=== PATIENT | female | born 1970 | race Caucasian/White ===

== ENCOUNTER 2019-06-02 06:05 | Inpatient (IN) ==
[2019-06-02] MEDS ORDERED: NS 1,000 ML IV ONE (06:56)
[2019-06-02] MEDS ORDERED: TORADOL IV ONE (06:56)
[2019-06-02] MEDS ORDERED: ZOFRAN IV ONE (06:56)
--- NOTE | 2019-06-02 07:23 | PROVIDER DOCUMENTATION ---
HPI-General Adult - General Chief Complaint: Abdominal Pain Stated Complaint: FLANK PAIN / SHOULDER Time Seen by Provider: 06/02/19 06:53 Source: patient Allergies/Adverse Reactions: Patient Allergies Allergy/AdvReac Type Severity Reaction Status Date / Time No Known Allergies Allergy Verified 05/24/15 12:46 Home Medications: Home Medication List Medication Instructions Recorded Confirmed Last Taken Type No Home Medications 05/24/15 06/02/19 Unknown History - History of Present Illness -Gen Adult Nature of Presenting Problems: 48yo female is s/p February total radical hysterectomy w/ BSO PER dR joy. Reports1 1/2 months of intermittent eisodes of sweats,nause,chills.[id number] 2 weeks of persistent high right upper abd and flank pain. Repots n/v and not retaining fluids x 2 days. Denies other health problems. passing gas. no dysuria. Review of Systems - Adult - REVIEW OF SYSTEMS - ADULT Constitutional: reports: see HPI, chills, fatique Eyes: reports: no symptoms reported Ears, Nose, Mouth & Throat: reports: no symptoms reported Cardiovascular: reports: no symptoms reported Respiratory: reports: see HPI, pleurisy, shortness of breath Gastrointestinal: reports: see HPI, abdominal pain Genitourinary: reports: no symptoms reported. denies: dysuria, discharge, frequency Musculoskeletal: reports: no symptoms reported Integumentary: reports: no symptoms reported Neurological: reports: no symptoms reported Psychiatric: reports: no symptoms reported Endocrine: reports: no symptoms reported Hematologic/Lymphatic: reports: no symptoms reported Allergic/Immunologic: reports: no symptoms reported All Other Systems: Reviewed and Negative Past History - Adult - PAST MEDICAL HISTORY-ADULT Review of Records: reports: Nursing Assessment Review, Medications Reviewed, Social history reviewed & non-contributory. Major Childhood Illnesses: reports: denies history Cardiovascular: reports: denies history Respiratory: reports: denies history Gastrointestinal: reports: denies history Obstetrical/Gynecological: reports: denies history Genitourinary: reports: denies history Musculoskeletal: reports: denies history Neurological: reports: denies history Endocrine/Immune: reports: denies history Other Conditions: reports: denies history - PRIOR SURGERIES/PROCEDURES Surgical/Procedure History: reports: other (multiple skin cancers removed from the face) - IMMUNIZATION STATUS Childhood Immunizations: NUTD Flu Vaccine: NUTD Physical Exam-General - PHYSICAL EXAM-ADULT Initial Vital Signs Reviewed: Yes - CONSTITUTIONAL General Appearance: alert, mild distress - EYES Eyes: PERRL/EOMI - HEAD, EARS, NOSE, MOUTH & THROAT HENMT: normocephalic/atraumatic, moist mucous membranes, pharynx normal - NECK Neck: full range of motion, supple - RESPIRATORY Respiratory: lungs clear, normal breath sounds, no respiratory distress, no accessory muscle use - CARDIOVASCULAR Cardiovascular: normal peripheral pulses, regular rate, rhythm, no edema, no JVD , no murmur - GASTROINTESTINAL (ABDOMEN) Abdominal Exam: normal bowel sounds, soft, tenderness (mild tender RUQ and r flank) - MUSCULOSKELETAL Back Exam: CVA tenderness (right, mild) Extremity: normal range of motion, non-tender, normal gait, normal inspection, no pedal edema, no calf tenderness - SKIN Integumentary: normal color, normal turgor - NEUROLOGIC Neurologic: regulator inspector II-XII nml as tested, grossly normal, no motor/sensory deficits - PSYCHIATRIC Psych/Mental Status: normal mood/affect, normal thought content, normal thought process, oriented x 3 Progress - PLAN OF CARE/RESULTS Progress/Plan/Lab Results: Vital Signs - 8 hr 06/02/19 06:09 Temperature 98.6 F Pulse Rate 91 H Respiratory Rate 20 Blood Pressure 147/89 O2 Sat by Pulse Oximetry 97 Orders Category Date Time Status Cardiac Monitoring DIRECTED Care 06/02/19 06:57 Active Saline Loc NOW Care 06/02/19 06:[address] ABD/PELVIS W/IV CONT ONLY [CT] Stat Exams 06/02/19 06:58 Ordered BLOOD CULTURE [BLDCUL] Stat Lab 06/02/19 06:58 Ordered CBC WITH ELECTRONIC DIFF [HEME] Stat Lab 06/02/19 06:50 Results COMPREHENSIVE METABOLIC PANEL [CHEM] Stat Lab 06/02/19 06:33 Received LACTATE, PLASMA [CHEM] Stat Lab 06/02/19 07:06 Ordered MAGNESIUM [CHEM] Stat Lab 06/02/19 06:50 Received PROTIME WITH INR [COAG] Stat Lab 06/02/19 06:50 Received PTT [COAG] Stat Lab 06/02/19 06:50 Received TROPONIN T Stat Lab 06/02/19 06:[address] W/POSS RFLX CULT [URINALYSIS] Stat Lab 06/02/19 07:08 Ordered 0.9% Sodium Chloride Inj [Ns] 1,000 ml Med 06/02/19 06:56 Active IV 999 mls/hr Ketorolac [Toradol] Med 06/02/19 06:56 Discontinued 15 mg IV NOW ONE Ondansetron [Zofran] Med 06/02/19 06:56 Discontinued 4 mg IV NOW ONE EKG [EKG] Stat Ther 06/02/19 06:58 Ordered Result Diagrams: 06/02/19 06:50 06/02/19 06:33 - REASSESSMENT Reassessment #1 Time Reassessed: 07:28 Status: improving (Seen and examined by me. Case discussed with Dr. Fenton at shift change. Right flank pain intermittent for several days, sometimes radiates to right shoulder. Associated with N/V and no diarrhea. States urine this morning was dark and "funky colored." Dr. Fenton had ordered IVF, toradol and zofran and patient states pain is "about a 2 now.") - CT/MRI 1 CT Study: Abdomen Impression: Abnormal, See EMR Report ( FINDINGS: There is a small right pleural effusion. There is a 2.6 x 2.3 cm pleural-based nodular opacity with central fluid or necrosis at the posterior lateral inferior right lower lobe lung. There are no substantial abnormalities of the liver, spleen, adrenal glands, or pancreas identified. There is nonspecific mild thickening of gallbladder rene. There are no calcified gallstones or pericholecystic inflammation identified. The bilateral kidneys enhance homogeneously except for an apparent 1 cm cyst at the medial mid to upper left kidney. There is no hydronephrosis. There are no substantial enlarged lymph nodes identified. There is no evidence of bowel obstruction. The appendix by history is surgically absent. There is no substantial bowel wall thickening identified. There is no free air, free fluid, or abscess identified. There has been prior hysterectomy. There is no abnormal pelvic mass or fluid collection identified. IMPRESSION: Small right pleural effusion. 2.6 x 2.3 cm pleural-based nodular opacity with central fluid or necrosis at posterior lateral inferior right lower lobe lung. This could be inflammatory or malignant. Nonspecific mild thickening of gallbladder rene. No calcified gallstones. No pericholecystic inflammation. Small left renal cyst. No hydronephrosis. This exam was performed using automated exposure control, adjustment of mA or kV according to patient size, and/or use of iterative reconstruction technique. Electronically signed by Bharat Pedroza 06/02/2019 8:19 AM 06/02/19818 Interpreting Physician: Bharat Pedroza MD Dictated Date/Time: 06/02/1910 cc: Cachorro Fenton MD; None,PCP) - CONSULTS/PCP/HOSPITALIST Notification #1 *Consult/PCP/Hospitalist*: Tillman paged at [id number] Time Discussed: 08:59 Consult Disposition: Will see in ED - CHANGE OF SHIFT REPORT (ED Provider) 1 Report Given and Care Transferred to:: dr hernandez Time of Transfer: 07:26 Items Pending: Labs, CT/MRI Results Departure - Departure Date of Disposition Decision: 06/02/19 Time of Disposition Decision: 08:59 DIAGNOSIS: Acute right flank pain, Pulmonary cavitary lesion, Pleural effusion on right, Pyelonephritis, Trichomonal vaginitis, Candidiasis of female genitalia Disposition: ADMITTED INPATIENT 09 Certified Medical Emergency: Emergent Condition: Stable Referrals and Follow-Ups: None,PCP [Primary Care Provider] - - Critical Care Note This patient required my direct & personal management of CC.: No Attestation - Physician/ SUELLEN Attestation Patient care was provided by Advanced Practice Provider:: No The physician spent face to face time with patient:: Yes Advanced Practice Provider documentation review:: Supervising physician onsite and consulted in the evaluation and care of this patient. The physician did have a face to face encounter with the patient.
[2019-06-02 07:24] LABS: AGAP 14; ALBUMIN 4.1 g/dL (3.5-5.0); ALKALINE PHOSPHATASE 94 U/L (32-104); BUN 5 mg/dL (8-22); CALCIUM 10.1 mg/dL (8.8-10.2); CHLORIDE 95 mmol/L (98-107); COSMO 267; CREATININE 0.6 mg/dL (0.5-0.9); ESTIMATED GFR > 60; GLUCOSE 126 mg/dL (70-104); GOT 29 U/L (10-30); GPT 19 U/L (10-36); POTASSIUM 3.7 mmol/L (3.5-5.1); SODIUM 134 mmol/L (136-145); TCO2 26 mmol/L (25-35); TOTAL PROTEIN 7.5 g/dL (6.3-8.3)
[2019-06-02 07:24] LABS: BASO# 0.06 X1000 (0.0-0.2); BASO% 0.5 % (0.0-0.8); EOS# 0.27 X1000 (0.0-0.7); EOS% 2.2 % (0.0-10.0); HEMATOCRIT 47.3 % (37.0-47.0); HEMOGLOBIN 15.7 g/dL (12.0-16.0); IMM GRAN# 0.12 X1000 (0.0-0.04); INR 0.93; LYMPH# 1.81 X1000 (1.2-3.4); LYMPH% 14.5 % (20.5-51.1); MCH 33.3 PG (27-31); MCHC 33.2 g/dL (33-37); MCV 100.4 FL (81-99); MONO% 13.6 % (1.7-9.3); NEUT# 8.55 X1000 (1.4-6.5); NEUT% 68.2 % (42.2-75.2); PLT 637 X1000 (130-400); PROTIME 12.9 Seconds (11.0-16.0); RBC 4.71 XMIL (4.2-5.4); RDW 12.4 % (11.5-14.5); WBC 12.51 X1000 (4.8-10.8)
[2019-06-02 07:25] LABS: PTT 29.4 Seconds (22.3-41.8)
[2019-06-02 07:31] LABS: COLOR AMBER; URINE BACTERIA 3+ /HFP; URINE CAST NONE SEEN /LPF; URINE CRYSTAL NONE SEEN /HPF; URINE EPITHELIAL CELLS <10 /HPF (<10); URINE RBC <10 /HPF (<10); URINE SOURCE CLEAN CATCH; URINE TRICHOMONAS PRESENT; URINE WBC 20-40 /HPF (<10); URINE YEAST PRESENT /HPF
[2019-06-02 07:32] LABS: BILIRUBIN URINE 1+ (NEGATIVE); BLOOD URINE TRACE (NEGATIVE); CLARITY VERY CLOUDY (CLEAR); GLUCOSE URINE NEGATIVE (NEGATIVE); KETONE URINE 2+(Moderate) mg/dL (NEGATIVE); LEUKOCYTES URINE 2+ (NEGATIVE); NITRITE URINE POSITIVE (NEGATIVE); PH URINE 6.5; PROTEIN URINE 1+(30 mg/dL) mg/dL (NEGATIVE); UROBILINOGEN URINE 4 mg/dL
--- NOTE | 2019-06-02 08:21 | Diag Imaging Result Doc PS360 ---
EXAM: CT ABD/PELVIS W/IV CONT ONLY - 06/02/2019 HISTORY: ruq/flank pain and tender TECHNIQUE: CT abdomen/pelvis with intravenous contrast. No oral contrast administered per request of the referring provider. COMPARISON: None. FINDINGS: There is a small right pleural effusion. There is a 2.6 x 2.3 cm pleural-based nodular opacity with central fluid or necrosis at the posterior lateral inferior right lower lobe lung. There are no substantial abnormalities of the liver, spleen, adrenal glands, or pancreas identified. There is nonspecific mild thickening of gallbladder rene. There are no calcified gallstones or pericholecystic inflammation identified. The bilateral kidneys enhance homogeneously except for an apparent 1 cm cyst at the medial mid to upper left kidney. There is no hydronephrosis. There are no substantial enlarged lymph nodes identified. There is no evidence of bowel obstruction. The appendix by history is surgically absent. There is no substantial bowel wall thickening identified. There is no free air, free fluid, or abscess identified. There has been prior hysterectomy. There is no abnormal pelvic mass or fluid collection identified. IMPRESSION: Small right pleural effusion. 2.6 x 2.3 cm pleural-based nodular opacity with central fluid or necrosis at posterior lateral inferior right lower lobe lung. This could be inflammatory or malignant. Nonspecific mild thickening of gallbladder rene. No calcified gallstones. No pericholecystic inflammation. Small left renal cyst. No hydronephrosis. This exam was performed using automated exposure control, adjustment of mA or kV according to patient size, and/or use of iterative reconstruction technique. Electronically signed by Bharat Pedroza 06/02/2019 8:19 AM
[2019-06-02] MEDS ORDERED: FLAGYL PO ONE (08:45)
[2019-06-02] MEDS ORDERED: DIFLUCAN PO ONE (08:45)
[2019-06-02] MEDS ORDERED: ROCEPHIN 1 GM in NS 50 ML IV ONE (08:45)
[2019-06-02] MEDS ORDERED: FLAGYL ONE (08:48)
[2019-06-02] MEDS ORDERED: TYLENOL PO PRN (09:01)
--- NOTE | 2019-06-02 09:09 | ED EKG INTERP ---
This chart was entered by Sandy Reid Scribe, acting as scribe for Damian Soto MD. EKG Interpretation - EKG Time of EKG reading by physician:: 08:18 EKG Read and Signed by:: Damian Soto EKG Interpretation (*Must complete 3 of following elements*): Abnormal Rate: 80 Rhythm: accelerated junctional rhythm [place]: normal QRS: normal [place] Interval: normal ST Wave: normal Comments: artifact present/nonspecific ST and T wave abnormality Attestation - Physician/ SUELLEN Attestation Patient care was provided by Advanced Practice Provider:: No The physician spent face to face time with patient:: Yes Advanced Practice Provider documentation review:: Supervising physician onsite and consulted in the evaluation and care of this patient. The physician did have a face to face encounter with the patient. This chart was documented by the indicated scribe, (Sandy Reid Scribe) and accurately reflects the services I performed and decisions made by mt, Damian Monsalve MD, as attested by the provider's signature.
[2019-06-02] MEDS ORDERED: NS 1,000 ML IV SCH (09:15)
--- NOTE | 2019-06-02 09:25 | Diag Imaging Result Doc PS360 ---
CHEST-2 VIEWS - 06/02/2019 INDICATION: RLL cavitation COMPARISON: CT abdomen pelvis from earlier today FINDINGS: There is a trace right pleural effusion. There is a faint nodular opacity in the lateral right lower lobe. There are no other abnormalities. Lungs are otherwise clear. Heart size is normal. IMPRESSION: No additional findings. Electronically signed by Jaden Mccrary 06/02/2019 9:23 AM
--- NOTE | 2019-06-02 09:31 | EKG Report ---
Test Performed on : 06/02/2019 08:10:53 AM Test Reason : abd pain Blood Pressure : / mmHG Vent. Rate : 080 BPM Atrial Rate : 080 BPM P-R Int : 000 ms QRS Dur : 092 ms QT Int : 420 ms P-R-T Axes : 000 068 062 degrees QTc Int : 484 ms Accelerated Junctional rhythm. Nonspecific ST and T wave abnormality Abnormal ECG No previous ECGs available Unconfirmed Result
[2019-06-02] MEDS: NORCO-10 PO PRN (14:55)
--- NOTE | 2019-06-02 18:58 | HISTORY AND PHYSICAL ---
CHIEF COMPLAINT: Abdominal pain. HISTORY OF PRESENT ILLNESS: The patient is a 48-year-old female who has a known history of cervical cancer, status post a radical hysterectomy in February. For the last month or so she has had nausea. No real vomiting. She has had occasional episodes of sweating and chills. Denies any dysuria, urinary frequency, urgency or hesitancy. Denies hematuria. Notes she has had right upper quadrant and right flank pain off and on. ALLERGIES: No known drug allergies. MEDICATIONS: No current prescription medications. REVIEW OF SYSTEMS: As noted above. Denies fevers, chills, cough, congestion. Denies any shortness of breath, chest pains or palpitations. Denies diarrhea, dysuria or frequency. Denies constipation, melena or hematochezia. Denies weight loss or weight gain. Denies skin rashes. PAST SURGICAL HISTORY: She has had multiple skin cancers removed from her face. SOCIAL HISTORY: Noncontributory. PHYSICAL EXAMINATION: VITAL SIGNS: Reviewed. Temperature 98 degrees, pulse 91, respiratory rate 20, BP 147/89, saturation 97% on room air. GENERAL: The patient is awake, currently in no distress. ABDOMEN: Soft. EXTREMITIES: Moves all extremities. NEUROLOGIC: No changes. ASSESSMENT: 1. Hypertension. 2. Right flank pain, concern for pyelonephritis. 3. Mild leukocytosis. 4. Hyperglycemia. 5. Thrombocytosis. 6. Pulmonary nodule on the right, 2.6 x 2.3, pleural-based with questionable necrosis. 7. History of cervical cancer. PLAN: We are going to admit the patient to the hospital. Pain control, fluids antibiotics. Check urine and blood culture. Concern as to what this pleural-based nodular opacity is, especially given her history of multiple skin cancers as well as recent diagnosis and surgical intervention for cervical cancer. I certainly feel as though her symptoms are due to pyelonephritis more than this incidentally found pulmonary nodule. We will continue to follow. Place her on antibiotics, fluids, and further orders as needed. cc: Walter Morse MD
[2019-06-02] MEDS: ZOFRAN IV PRN (19:54)
[2019-06-03] MEDS ORDERED: VANCOMYCIN IV PER PHARMACY MISC SCH (05:00)
[2019-06-03] MEDS: NORCO-10 PO PRN (05:23)
[2019-06-03] MEDS: ZOFRAN IV PRN ×3 (05:23→22:14)
[2019-06-03] MEDS ORDERED: VANCOMYCIN 1 GM/NS 1 GM/250 ML IVPB IV ONE ×2 (05:30→06:30)
[2019-06-03 05:56] LABS: HEMATOCRIT 45.6 % (37.0-47.0); HEMOGLOBIN 15.6 g/dL (12.0-16.0); MCHC 34.2 g/dL (33-37); MCV 99.3 FL (81-99); MPV 9.7 FL (7.4-10.4); RBC 4.59 XMIL (4.2-5.4); RDW 12.4 % (11.5-14.5); WBC 14.4 X1000 (4.8-10.8)
[2019-06-03 06:19] LABS: AGAP 17; ALBUMIN 3.6 g/dL (3.5-5.0); ALKALINE PHOSPHATASE 85 U/L (32-104); BUN 4 mg/dL (8-22); CALCIUM 9.7 mg/dL (8.8-10.2); CHLORIDE 104 mmol/L (98-107); COSMO 276; CREATININE 0.5 mg/dL (0.5-0.9); ESTIMATED GFR > 60; GLUCOSE 94 mg/dL (70-104); GOT 29 U/L (10-30); GPT 16 U/L (10-36); MAGNESIUM 1.7 mg/dL (1.5-2.7); POTASSIUM 3.6 mmol/L (3.5-5.1); SODIUM 140 mmol/L (136-145); TCO2 20 mmol/L (25-35); TOTAL PROTEIN 7.2 g/dL (6.3-8.3)
--- NOTE | 2019-06-03 07:20 | EKG Report ---
Test Performed on : 06/03/2019 05:35:54 AM Test Reason : CP Blood Pressure : / mmHG Vent. Rate : 075 BPM Atrial Rate : 075 BPM P-R Int : 138 ms QRS Dur : 088 ms QT Int : 390 ms P-R-T Axes : 084 088 081 degrees QTc Int : 435 ms Normal sinus rhythm. Nonspecific ST and T wave abnormality Abnormal ECG When compared with ECG of 02-JUN-2019 08:10, (Unconfirmed) Sinus rhythm. has replaced Junctional rhythm. Confirmed by Aneudy Ospina MD ([id number]) on 06/07/2019 9:10:29 PM
[2019-06-03] MEDS: MORPHINE IV PRN ×2 (11:44→22:13)
[2019-06-03] MEDS: NS 1,000 ML IV SCH (11:45)
--- NOTE | 2019-06-03 13:47 | PROGRESS NOTE ---
DATE: 06/03/2019 SUBJECTIVE: Patient notes she still has some low-grade fevers. Still had right-sided flank and chest pain. She is still very concerned that this nodule inside her lung is what is causing her pain and all of her symptoms. OBJECTIVE: Vital Signs: On physical exam, temperature is 99, pulse 84, respiratory rate 18, BP 116/74. General: Patient is in no respiratory distress, sitting in the bed. HEENT: Normocephalic. Neck: Supple. Cardiovascular: Regular rate. No murmurs. Chest: Clear, nonlabored. Abdomen: Soft. Nondistended, nontender. Extremities: Moves all extremities. Neurologic: No changes. ASSESSMENT: 1. Pyelonephritis. 2. Right pleural-based nodular density of 2.6 x 2.3 cm. 3. Leukocytosis. 4. Hyperglycemia. PLAN: We will continue patient in the hospital. Continue to follow. Further orders as needed. We will continue to keep her on antibiotics until cultures return. cc: Walter Morse MD
[2019-06-03] MEDS: VANCOMYCIN 1,400 MG in NS 250 ML IV SCH (20:25)
[2019-06-04] MEDS: MORPHINE IV PRN ×4 (05:27→23:23)
[2019-06-04] MEDS: NS 1,000 ML IV SCH ×2 (05:27→14:08)
[2019-06-04 06:15] LABS: HEMATOCRIT 45.4 % (37.0-47.0); MCH 33.3 PG (27-31); MCV 100.9 FL (81-99); MPV 9.6 FL (7.4-10.4); RBC 4.5 XMIL (4.2-5.4); RDW 12.3 % (11.5-14.5); WBC 15.66 X1000 (4.8-10.8)
[2019-06-04 06:32] LABS: AGAP 16; ALBUMIN 3.6 g/dL (3.5-5.0); ALKALINE PHOSPHATASE 70 U/L (32-104); BUN 1 mg/dL (8-22); CALCIUM 9.1 mg/dL (8.8-10.2); CHLORIDE 100 mmol/L (98-107); COSMO 274; CREATININE 0.5 mg/dL (0.5-0.9); ESTIMATED GFR > 60; GLUCOSE 104 mg/dL (70-104); GOT 16 U/L (10-30); GPT 11 U/L (10-36); MAGNESIUM 1.5 mg/dL (1.5-2.7); POTASSIUM 3.3 mmol/L (3.5-5.1); SODIUM 139 mmol/L (136-145); TCO2 24 mmol/L (25-35); TOTAL PROTEIN 6.8 g/dL (6.3-8.3)
--- NOTE | 2019-06-04 07:17 | Diag Imaging Result Doc PS360 ---
CHEST-2 VIEWS - 06/04/2019 INDICATION: hypoxia COMPARISON: 06/02/2019 FINDINGS: There are new dense focal infiltrates in the right middle and lower lobes. The left lung remains clear. Heart size is normal. No pneumothorax or significant pleural effusion. IMPRESSION: Multilobar pneumonia in the left base. Electronically signed by Jaden Mccrary 06/04/2019 7:14 AM
[2019-06-04] MEDS: ZOSYN 3.375 GM in NS 50 ML IV SCH ×3 (08:00→18:30)
[2019-06-04] MEDS ORDERED: KLOR-CON PO ONE (09:15)
--- NOTE | 2019-06-04 09:43 | PROGRESS NOTE ---
DATE: 06/04/2019 SUBJECTIVE: The patient complains of having significant pain in the right flank and right lower chest area. OBJECTIVE: Vital Signs: Temperature 99.6 degrees, pulse 81 per minute, respiratory rate 18 per minute, blood pressure 122/86, pulse oximetry 94% on room air. General: Patient is alert and oriented x3. She is in [id number] distress secondary to pain in her right flank and right lower chest area. Cardiovascular System: First and second heart sounds are audible without any murmurs or gallops. Respiratory System: No respiratory distress noted. Right lower lung entry slightly decreased, but there are no rales or rhonchi present on auscultation. Gastrointestinal: Abdomen is soft and nondistended. Right flank area is tender on examination. Musculoskeletal System: No deformities are present. DIAGNOSTIC DATA: CBC shows WBC count of 15.66 with platelet count of 653,000. Hemoglobin and hematocrit are within normal limits. Comprehensive metabolic panel showed potassium levels of 3.3. Rest of the comprehensive metabolic panel is nondiagnostic. Urinalysis showed 20 to 40 white blood cells per high-power field and CT scan of the abdomen and pelvis obtained on 06/02/2019 showed small right pleural effusion with 2.6 in to 2.3 cm pleural based nodular opacity with central fluid or necrosis at posterior lateral inferior right lower lung. She was also noted to have nonspecific mild thickening of the gallbladder rene. Small left renal cyst was noted, but there was no hydronephrosis. IMPRESSION: 1. 48-year-old female with urinary tract infection and right lung nodule with worsening pneumonia in right lower lung with the possibility of having malignancy. 2. Leukocytosis secondary to pneumonia. 3. Hypokalemia. PLAN: 1. I am going to obtain CT scan of the chest with contrast for further evaluation. 2. Meanwhile, we are going to continue her on IV Apresoline along with vancomycin and give her IV fluids. 3. Further recommendations will be given as per CT scan results. cc: Jono Pleitez MD
[2019-06-04] MEDS: VANCOMYCIN 1,400 MG in NS 250 ML IV SCH ×2 (10:25→20:11)
[2019-06-04] MEDS: ZOFRAN IV PRN (15:09)
[2019-06-04] MEDS: NORCO-10 PO PRN (15:10)
[2019-06-05] MEDS: ZOSYN 3.375 GM in NS 50 ML IV SCH ×4 (02:11→20:46)
[2019-06-05] MEDS: MORPHINE IV PRN ×4 (03:49→22:24)
[2019-06-05] MEDS: NS 1,000 ML IV SCH ×2 (06:17→17:49)
[2019-06-05 06:22] LABS: BE 1.2 mmoll (-3.0-3.0); BLOOD TYPE ARTERIAL; HCO3-(ACT) 25.5 mmoll (20.0-26.0); METHB 1.2 % (0.0-1.5); O2(CT) 17.7 mL/dL (15.0-23.0); PCO2(98.6) 37 mmHg (35-45); PO2(98.6) 50 mmHg (60-100); SAMPLE BLOOD; SAO2 89.4 % (95.0-100.0); THB 14.7 g/dL (11.5-17.4); pH(98.6) 7.44 (7.35-7.45)
[2019-06-05 06:25] LABS: ALLEN TEST NO; MODALITY ROOM AIR; O2HB 85.8 % (95.0-99.0)
[2019-06-05 06:29] LABS: BASO# 0.04 X1000 (0.0-0.2); BASO% 0.3 % (0.0-0.8); EOS# 0.27 X1000 (0.0-0.7); EOS% 1.8 % (0.0-10.0); HEMATOCRIT 44.3 % (37.0-47.0); HEMOGLOBIN 14.3 g/dL (12.0-16.0); IMM GRAN# 0.08 X1000 (0.0-0.04); IMM GRAN% 0.5 % (0.0-0.5); LYMPH# 1.67 X1000 (1.2-3.4); LYMPH% 11.1 % (20.5-51.1); MCH 32.7 PG (27-31); MCHC 32.3 g/dL (33-37); MCV 101.4 FL (81-99); MONO# 2.11 X1000 (0.11-0.59); NEUT# 10.88 X1000 (1.4-6.5); NEUT% 72.3 % (42.2-75.2); PLT 582 X1000 (130-400); RBC 4.37 XMIL (4.2-5.4); RDW 12.3 % (11.5-14.5); WBC 15.05 X1000 (4.8-10.8)
[2019-06-05 07:13] LABS: AGAP 16; ALKALINE PHOSPHATASE 61 U/L (32-104); BUN 2 mg/dL (8-22); CALCIUM 8.8 mg/dL (8.8-10.2); CHLORIDE 101 mmol/L (98-107); COSMO 274; CREATININE 0.4 mg/dL (0.5-0.9); ESTIMATED GFR > 60; GLUCOSE 78 mg/dL (70-104); GOT 12 U/L (10-30); GPT 8 U/L (10-36); POTASSIUM 3.4 mmol/L (3.5-5.1); SODIUM 140 mmol/L (136-145); TCO2 23 mmol/L (25-35); TOTAL PROTEIN 6.2 g/dL (6.3-8.3)
--- NOTE | 2019-06-05 08:03 | Diag Imaging Result Doc PS360 ---
EXAM: CT THORAX W/CONTRAST HISTORY: Worsening pneumonia TECHNIQUE: CT chest with intravenous contrast COMPARISON: None. FINDINGS: There is a moderate sized right-sided pleural effusion measuring 5.3 cm posteriorly and inferiorly in the midline. No significant left pleural fluid. The heart is mildly enlarged. No aortic aneurysm or dissection. There are small mediastinal nodes. There are right lower lobe and middle lobe infiltrates as well as atelectasis. Findings are more prominent in the lower lobe. A small amount of atelectasis is present in the left lower lobe. IMPRESSION: Cardiomegaly with a moderate-sized right pleural effusion with basilar atelectasis and infiltrates. This exam was performed using automated exposure control, adjustment of mA or kV according to patient size, and/or use of iterative reconstruction technique. Electronically signed by Adebayo Lawrence 06/05/2019 8:01 AM
[2019-06-05] MEDS: VANCOMYCIN 1,700 MG in NS 250 ML IV SCH ×2 (09:11→21:50)
[2019-06-05] MEDS: NORCO-10 PO PRN ×2 (09:11→19:30)
[2019-06-05] MEDS: ZOFRAN IV PRN ×2 (12:28→19:30)
[2019-06-05] MEDS: KENALOG 0.1% CREAM TOP SCH (20:46)
[2019-06-05] MEDS ORDERED: SOLU-MEDROL IV ONE (21:22)
--- NOTE | 2019-06-05 21:39 | PROGRESS NOTE ---
DATE: 06/05/2019 SUBJECTIVE: Patient notes that overall she states that she is feeling better. Her cough has improved. Her shortness of breath has improved. OBJECTIVE: Vital signs: Temperature 98.6, pulse 81, respiratory rate 18, BP 129/67. General: Patient is awake, alert. She is sitting up in the bed, pleasant to talk with. She is in no current respiratory distress. HEENT: Normocephalic. Neck: Supple. Cardiovascular: Regular rate. Chest: Decreased breath sounds, but equal. No current crackles. Abdomen: Soft, nondistended. Extremities: Moves all extremities. ASSESSMENT: 1. Right pleural effusion. 2. Right pleural nodule of undetermined origin. The patient does have a history of cervical cancer with a recent diagnosis and treatment. 3. Leukocytosis, mildly improved. 4. Right lower lobe pneumonia. PLAN: We will continue patient in the hospital. Continue antibiotics. If her effusion does not improve, she may require thoracentesis. Certainly needs to follow closely with pulmonology regarding her pulmonary nodule. cc: Walter Morse MD
[2019-06-06] MEDS: ZOSYN 3.375 GM in NS 50 ML IV SCH ×4 (02:00→20:30)
[2019-06-06] MEDS: ZOFRAN IV PRN ×2 (04:43→17:26)
[2019-06-06] MEDS: MORPHINE IV PRN ×2 (04:43→22:31)
[2019-06-06] MEDS: NS 1,000 ML IV SCH (06:09)
[2019-06-06] MEDS: KENALOG 0.1% CREAM TOP SCH ×3 (07:57→22:37)
[2019-06-06] MEDS: VANCOMYCIN 1,700 MG in NS 250 ML IV SCH (08:37)
[2019-06-06] MEDS: NORCO-10 PO PRN ×2 (10:16→17:26)
[2019-06-06] MEDS: ZYVOX 600 MG/D5W 600 MG/300 ML IVPB IV SCH (18:18)
[2019-06-06] MEDS ORDERED: LASIX IV ONE (18:23)
[2019-06-06] MEDS: KLONOPIN PO PRN (18:35)
--- NOTE | 2019-06-06 18:51 | PROGRESS NOTE ---
DATE: 06/06/2019 SUBJECTIVE: She is still having right-sided pleuritic chest pain. OBJECTIVE: Blood pressure is 132/67, heart rate 63, respiratory rate 18, temperature 98 degrees, 93% on 2 L.Cardiovascular: Regular rate and rhythm. Pulmonary: Bilateral breath sounds. Clear to auscultation. GI: Was soft, nontender, nondistended. Bowel sounds are positive. Her right side has no diminished breath sounds. PROBLEM LIST: 1. Vastly accumulating. I think she will need a thoracentesis or possibly a thoracostomy. I consulted Dr. Carbajal who, after reviewing the study, thinks she needs a thoracostomy, so we are going to transfer across town to evaluate for that. I do not know why she has this pleural effusion that is accumulating. It is possible she has heart failure, although she does not really have any other symptoms of heart failure, but it has been getting worse, so we are going to stop her IV fluids and initiate some Lasix and we will see how she does. I am going to get a pulmonary opinion as well when she gets over there. 2. Possible pneumonia. We are on Zosyn and vancomycin and have not improved a ton and we will get antibiotics and follow. DISPOSITION: 1. Pending her clinical status, but I anticipate transferring her for a pulmonary evaluation and surgical evaluation for a thoracostomy. 2. She is very anxious. I am going to put her on a little bit of low-dose Klonopin and see how she does with that. She does have a smoking history, although fairly remote. She does have a history of cervical cancer, but apparently it has been all controlled. cc: Yaya Krishnan MD
[2019-06-07] MEDS: ZOSYN 3.375 GM in NS 50 ML IV SCH ×4 (02:58→22:31)
[2019-06-07 05:59] LABS: BASO# 0.02 X1000 (0.0-0.2); BASO% 0.1 % (0.0-0.8); EOS# 0.07 X1000 (0.0-0.7); EOS% 0.5 % (0.0-10.0); HEMATOCRIT 40.8 % (37.0-47.0); HEMOGLOBIN 13.5 g/dL (12.0-16.0); IMM GRAN# 0.09 X1000 (0.0-0.04); IMM GRAN% 0.6 % (0.0-0.5); LYMPH# 2.04 X1000 (1.2-3.4); MCH 32.7 PG (27-31); MCHC 33.1 g/dL (33-37); MCV 98.8 FL (81-99); MONO# 1.65 X1000 (0.11-0.59); MONO% 11.3 % (1.7-9.3); MPV 9.6 FL (7.4-10.4); NEUT# 10.68 X1000 (1.4-6.5); NEUT% 73.5 % (42.2-75.2); PLT 804 X1000 (130-400); RBC 4.13 XMIL (4.2-5.4); RDW 12.3 % (11.5-14.5); WBC 14.55 X1000 (4.8-10.8)
[2019-06-07] MEDS: ZYVOX 600 MG/D5W 600 MG/300 ML IVPB IV SCH ×2 (06:13→21:50)
[2019-06-07] MEDS: MORPHINE IV PRN ×4 (06:13→22:02)
[2019-06-07] MEDS: ZOFRAN IV PRN (06:14)
[2019-06-07 06:15] LABS: AGAP 12; BUN 3 mg/dL (8-22); CALCIUM 9.3 mg/dL (8.8-10.2); CHLORIDE 102 mmol/L (98-107); COSMO 279; CREATININE 0.7 mg/dL (0.5-0.9); ESTIMATED GFR > 60; GLUCOSE 91 mg/dL (70-104); POTASSIUM 2.7 mmol/L (3.5-5.1); SODIUM 142 mmol/L (136-145); TCO2 28 mmol/L (25-35)
[2019-06-07 07:54] LABS: BANDS 1 % (0-1); LYMPHS 13 % (21-51); MONO 5 % (1-9); SEGS 80 % (42-75)
[2019-06-07 07:56] LABS: MICROCYTOSIS OCCASIONAL; VACUOLES 1+
[2019-06-07] MEDS: KENALOG 0.1% CREAM TOP SCH ×2 (08:46→20:47)
[2019-06-07] MEDS: NORCO-10 PO PRN (10:04)
[2019-06-07] MEDS ORDERED: KLOR-CON PO ONE (11:00)
[2019-06-07] MEDS ORDERED: POTASSIUM CHLORIDE 20 MEQ/SWI 20 MEQ/100 ML IVPB IV SCH ×2 (12:00→14:00)
[2019-06-07] MEDS: KLONOPIN PO PRN ×3 (12:48→20:51)
[2019-06-07] MEDS ORDERED: TYLENOL PO PRN (13:35)
--- NOTE | 2019-06-07 14:11 | PROGRESS NOTE ---
DATE: 06/07/2019 SUBJECTIVE: The patient has no major complaints. She looks a little less harried than she did yesterday. Still having pleuritic chest pain, still having shortness of breath. OBJECTIVE: Blood pressure 113/67, heart rate 60, respiratory rate 12, temperature 98.1 degrees.Cardiovascular: Regular rate and rhythm. Pulmonary: Bilateral breath sounds, clear to auscultation. GI: Soft, nontender, nondistended. Bowel sounds are positive. LABORATORY DATA: White count is 14, hemoglobin and hematocrit 13 and 40, platelets 804,000. Potassium is down to 2.7, that is probably from the Lasix. ProBNP is 975, which is not in the normal range but not in the full decompensated heart failure range. ASSESSMENT AND PLAN: 1. Pleural effusion on the right, which is rapidly accumulating. Dr. Carbajal recommending thoracostomy versus just plain thoracentesis and it does look loculated on the CT scan, which is odd because it accumulated very quickly, so we will continue to follow. Echo is pending. I do not think she has heart failure, but we are still ruling that out and we will need to do pleural studies on it. 2. Pneumonia. She is on antibiotics which is Zosyn and linezolid. I switched her to that from vancomycin yesterday. She may need ID opinion if we do think this is true pneumonia. 3. Generalized anxiety. She is on some as needed Klonopin. We will need to continue to follow. I have put in for a pulmonary consult and a Dr. Carbajal consult and we will continue to monitor. She is being transferred to the main hospital for treatment and evaluation by Pulmonary. cc: Yaya Krishnan MD
--- NOTE | 2019-06-07 14:22 | GENERAL SURGERY CONSULTATION ---
DATE: 06/07/2019 I have been asked to see Ms. Ruggiero regarding her right pleural effusion. This pleasant 48-year- old female admitted with his sweating and chills, some right flank and pleuritic chest pain. She is noted to have a leukocytosis. She was noted to have a urinary tract infection. Since her admission, she has developed a right pleural effusion consistent with a right-sided pneumonia. MEDICATIONS: She has no prescription medications. Her current medications include: 1. Zosyn. 2. Zofran. 3. Morphine. 4. Zyvox. 5. Lasix. 6. Lovenox. 7. Klonopin. 8. [place] 10. ALLERGIES: She has no known drug allergies. OTHER MEDICAL PROBLEMS: Include a history of cervical cancer. She has also had some skin cancers. PREVIOUS SURGERY: Includes some skin cancers removed from her face. SOCIAL HISTORY: She is . She denies alcohol abuse. FAMILY HISTORY: Not known. REVIEW OF SYSTEMS: Negative in all 10 subsystems except as noted above in the history of Present Illness. PHYSICAL EXAMINATION: Vital Signs: She is afebrile. Heart rate 60, blood pressure 113/67. Neck: No cervical adenopathy. Lungs: Bilateral breath sounds are present but diminished on the right. Heart: Regular rate and rhythm. Abdomen: Soft and nontender. No peripheral edema. Endocrine: Negative. Lymphatic: Is negative. Neurologic: She is awake, alert, and oriented. Neurologically she moves all extremities. LABORATORY DATA: Her laboratory [place] [address]. Chest x-ray reveals opacity in the right lower lung. CT scan shows a large right pleural effusion with lower lung collapse. PLAN: The plan will be a right chest tube placement. I have discussed it with her. We can do this at the bedside with appropriate local anesthesia and IV sedation. She understands and agrees to proceed. The chest tube placement will allow her lung to expand and hopefully minimize the production of any rind around her lung. cc: Cachorro Carbajal MD
--- NOTE | 2019-06-07 15:45 | Diag Imaging Result Doc PS360 ---
CHEST-PORTABLE - 06/07/2019 INDICATION: right chest tube placement COMPARISON: 06/04/2019 FINDINGS: There is a new right basilar chest tube in good position. There is been slight decrease in the small right pleural effusion. Stable adjacent infiltrate. Stable mild cardiomegaly. No pneumothorax. The left lung is clear. IMPRESSION: No complication. Electronically signed by Jaden Mccrary 06/07/2019 3:43 PM
--- NOTE | 2019-06-07 16:29 | ECHO REPORT ---
ORDER DATE: 06/06/2019 INTERPRETING PHYSICIAN: Keegan Gómez MD ECHOCARDIOGRAPHIC MEASUREMENTS: 1. Interventricular septum 0.9. 2. Left ventricular posterior wall 0.9. 3. Diastolic diameter 5.4. 4. Left atrium 3.5. 5. Aorta 3.5. 6. Pulmonic valve was normal. There is trace pulmonary regurgitation. 7. Aortic valve leaflets are trileaflet. 8. Mitral valve was normal. 9. Tricuspid valve was normal. There is mild tricuspid regurgitation. Peak velocity across the tricuspid valve less than 2 m/sec. There is mild mitral regurgitation. 10. Normal left ventricular cavity size. Estimated ejection fraction of 60%. 11. Peak velocity across the aortic valve less than 2 m/sec. By Doppler studies there is no aortic stenosis or regurgitation. 12. There is no pericardial effusion or obvious intracardiac mass or thrombus seen. cc: MD Yaya Monzon MD
[2019-06-07 17:05] LABS: AMYLASE BODY FLUID 21 U/L; GLUCOSE BODY FLUID 64 mg/dL; LDH BODY FLUID 991 U/L
--- NOTE | 2019-06-07 17:17 | OPERATIVE NOTE ---
PROCEDURE DATE: 06/07/2019 PROCEDURE PERFORMED: Right chest tube placement. SURGEON: Cachorro Carbajal MD PREOPERATIVE DIAGNOSIS: Right pleural effusion. POSTOPERATIVE DIAGNOSIS: Right pleural effusion. DESCRIPTION OF PROCEDURE: After informed consent was obtained, the patient was placed supine with the right arm elevated. The right lateral chest was prepped and draped in a sterile fashion. We anesthetized the skin with 1% lidocaine in the skin and the subcutaneous tissue and then the pleura just over a rib. We then incised the skin, and used scissors to spread the subcutaneous tissue and entered the pleural space just over a rib. We then digitally followed the tract into the pleural space. We then introduced a 28 trocar chest tube posteriorly and medially. After the chest tube was satisfactory positioned, yellow serous fluid was evacuated. About 300 mL of fluid was spontaneously evacuated. We secured the chest tube with 0 silks there were contained within the tray. A sterile gauze dressing was applied. She tolerated it well. The chest tube was attached to the Pleur-evac. We will send the fluid for evaluation. We placed the Pleur-evac on negative pressure and order a chest x-ray. cc: Cachorro Carbajal MD
[2019-06-07 18:41] LABS: BODY FLUID SOURCE PLEURAL FLUID; SPECIMEN PLEURAL FLUID
[2019-06-07 18:45] LABS: WBC BF 1199 /cumm
[2019-06-07 18:50] LABS: MONOS 24 %; POLYS 76 %
--- NOTE | 2019-06-07 19:44 | PROGRESS NOTE ---
DATE: 06/07/2019 SUBJECTIVE: Ms. Ruggiero was transferred from [facility] and she just underwent chest tube placement on right side which suggests exudative pleural fluid. She is very anxious, and at the time of my encounter is crying. She is complaining of some pain on the right chest site. She is also complaining about IV beeping. VITALS: Currently, temperature 98.3 degrees, pulse 77, respiratory rate 18, blood pressure 112/80, saturating 95% on room air. PHYSICAL EXAMINATION: She is anxious, not in distress though. Air entry bilaterally equal. No wheeze or rhonchi. Decreased air entry of right inframammary region. S1, S2 normal. No murmur or gallop.Abdomen: Soft, nontender. No lower extremity edema. LABORATORY: Labs suggestive of leukocytosis. She does have hypokalemia, which was repleted. Microbiology, so far no positive data. ASSESSMENT: 1. Right-sided exudative pleural effusion. 2. Right lung multifocal pneumonia. 3. Right lung mass which could be pneumonia versus malignancy versus others. 4. Anxiety. PLAN: Continue antibiotics. Follow up pleural fluid analysis. Plan of care discussed with her. Her questions have been answered. cc: Pawan Simon MD
[2019-06-08] MEDS: ZOSYN 3.375 GM in NS 50 ML IV SCH ×4 (01:20→20:20)
[2019-06-08] MEDS: MORPHINE IV PRN ×5 (02:02→20:20)
[2019-06-08] MEDS: ZYVOX 600 MG/D5W 600 MG/300 ML IVPB IV SCH ×2 (02:18→14:15)
[2019-06-08] MEDS: KLONOPIN PO PRN (06:08)
[2019-06-08] MEDS: LOVENOX SUBQ SCH (06:10)
[2019-06-08 07:25] LABS: BASO# 0.03 X1000 (0.0-0.2); BASO% 0.3 % (0.0-0.8); EOS# 0.22 X1000 (0.0-0.7); EOS% 2.5 % (0.0-10.0); HEMATOCRIT 38.3 % (37.0-47.0); HEMOGLOBIN 12.5 g/dL (12.0-16.0); IMM GRAN# 0.05 X1000 (0.0-0.04); IMM GRAN% 0.6 % (0.0-0.5); LYMPH% 19.4 % (20.5-51.1); MCH 32.6 PG (27-31); MCHC 32.6 g/dL (33-37); MONO# 1.21 X1000 (0.11-0.59); MONO% 13.8 % (1.7-9.3); MPV 9.9 FL (7.4-10.4); NEUT# 5.56 X1000 (1.4-6.5); NEUT% 63.4 % (42.2-75.2); PLT 750 X1000 (130-400); RBC 3.83 XMIL (4.2-5.4); RDW 12.3 % (11.5-14.5); WBC 8.77 X1000 (4.8-10.8)
--- NOTE | 2019-06-08 07:28 | Diag Imaging Result Doc PS360 ---
EXAM: CHEST-PORTABLE INDICATION: dyspnea TECHNIQUE: One view COMPARISON: 05/08/2019 FINDINGS: The right chest tube is in stable position. The small right pleural effusion with adjacent mild atelectasis and/or infiltrate is unchanged. No new consolidation is identified. Cardiac silhouette is stable. IMPRESSION: Stable chest. Electronically signed by Aquilino Childress 06/08/2019 7:26 AM
[2019-06-08 07:45] LABS: AGAP 13; BUN 2 mg/dL (8-22); CALCIUM 8.7 mg/dL (8.8-10.2); CHLORIDE 105 mmol/L (98-107); COSMO 281; CREATININE 0.6 mg/dL (0.5-0.9); ESTIMATED GFR > 60; GLUCOSE 97 mg/dL (70-104); POTASSIUM 2.6 mmol/L (3.5-5.1); SODIUM 143 mmol/L (136-145); TCO2 25 mmol/L (25-35)
[2019-06-08] MEDS: LASIX IV SCH (08:17)
[2019-06-08] MEDS: KENALOG 0.1% CREAM TOP SCH ×2 (08:17→20:20)
--- NOTE | 2019-06-08 09:19 | PROVIDER PROGRESS NOTE ---
Progress Note Pulmonary Additional Note: I reviewed CT chest images and report. I couldn't specify a mass. We will repeat imaging early next week (after C tube drainage).
[2019-06-08] MEDS: NORCO-10 PO PRN ×2 (11:44→17:45)
[2019-06-08] MEDS: ZOFRAN IV PRN ×2 (11:46→17:46)
--- NOTE | 2019-06-08 14:56 | CONSULTATION ---
DATE OF CONSULTATION: 06/08/2019 REQUESTING PROVIDER: Yaya Krishnan MD REASON FOR CONSULTATION: Pleural effusion. HISTORY OF PRESENT ILLNESS: This is a 48-year-old female with a medical history of cervical cancer and skin cancer. She was originally admitted to the [facility] with right flank pain. The initial CT abdomen, pelvis with contrast on 06/02/2019 showed small right pleural effusion with 2.6 x 2.3 cm pleural based nodular opacity with central fluid or necrosis at posterior, lateral, inferior right lower lobe lung. She has been treated with pyelonephritis with Rocephin, Zosyn, vancomycin, Flagyl and linezolid. The chest x-ray on 06/04/2019 started showing multilobar pneumonia in the left base and later she got a CT thorax with contrast on 06/05/2019, showed cardiomegaly with a moderate size right pleural effusion with bibasilar atelectasis and infiltrates, so since then, she has been treating with right lower lobe pneumonia. Considering the acute development of right pleural effusion, she was transferred to our facility yesterday afternoon for surgeon consult and pulmonary consult. Soon after she was transferred to our facility, she underwent right chest tube placement by Dr. Carbajal. Patient currently is lying in bed with no acute respiratory distress noted. She appears anxious. She is on room air. She reported right chest pain where the chest tube placed. She reported she has right chest pain starting at the side where right chest tube placed, which the pain exactly same as the pain she came in with. She reports she had a fall about a month ago, but she does not remember she ever hit anything at that time. She reports sweating, chills, right flank pain and pleuritic chest pain, shortness of breath before admission. She has chronic mild cough with some clear thick sputum at times, which apparently worsening in last 3 weeks before admission. She has no wheezing, nausea, vomiting, bowel habit change, or urination discomfort. She did have poor appetite in last several days because of sickness. PAST MEDICAL AND SURGICAL HISTORY: 1. Cervical cancer status post radical hysterectomy in February 2018. 2. Skin cancer multiple sites status post multiple skin surgeries all over the whole body from her face to her back. SOCIAL HISTORY: Patient is , lives at home. She has an indoor dog as a pet for 6 years. She used to smoke less than half a pack per day and quit in February 2018. She reported that she stopped smoking about 5 years ago. She has no history of alcohol abuse. She did inhale marijuana for several years occasionally. She states it helped her cervical cancer. She states that she inhaled marijuana more frequently since February 2018. She has no other illicit drug use. FAMILY HISTORY: Unknown. Patient is adopted. ALLERGIES: No known drug allergies. REVIEW OF SYSTEMS: A 10-point review of systems was conducted and the pertinent is listed within the HPI, otherwise noncontributory. PHYSICAL EXAMINATION: Vital Signs: Temperature 98.3, blood pressure 127/79, pulse 61, respiratory rate 18, oxygen saturation 95% on room air. General: Chronically ill-appearing, lying in bed with no acute respiratory or cardiac distress noted. She appears anxious. HEENT: Atraumatic, normocephalic. Has some surgical scar on the tip of her nose. Trachea midline. Mucosa pink and moist. Chest: Right chest tube in place. Respiratory: Even and unlabored. Symmetrical excursion. Auscultation revealed diminished breathing sounds on the right side of the lung, otherwise clear. Cardiovascular: Regular rate and rhythm. Gastrointestinal: Soft, nondistended, nontender. Normoactive bowel sounds in all 4 quadrants. Extremities: No pedal edema. No cyanosis. No clubbing. Dorsalis pedis 2+ bilaterally. Neurologic: Alert, oriented x3. Speech fluent. Follows commands. LABORATORY DATA: White blood cell 8.77, hemoglobin 12.5, hematocrit 38.3, platelets 750,000. Sodium 143, potassium 2.6, chloride 105, carbon dioxide 25, BUN 2, creatinine 0.6, glucose 97. IMAGING DATA: Chest x-ray this morning showed right chest tube in stable position. Stable small right pleural effusion which suggests some mild atelectasis and/or infiltrate. ASSESSMENT: This is a 48-year-old female with a medical history of cervical cancer and skin cancer. She has been originally admitted to the [facility] with right flank pain secondary to suspected pyelonephritis. She also initially presented with pulmonary nodule with small right pleural effusion on 06/02/2019, which apparently worsened significantly as the CT chest on 06/05/2019 showed moderate size right pleural effusion. She was transferred to our facility yesterday afternoon with a surgeon consult and pulmonary consult. She underwent right chest tube placement yesterday afternoon right after arrival to our facility by Dr. Carbajal. 1. Moderate size right pleural effusion with basilar atelectasis and infiltrates. Currently, patient still has the right chest tube in place. There is about 200 mL red bloody drainage in the container. 2. Right lower lobe pneumonia. 3. Pleural based nodular opacity 2.[address] 4. History of light tobacco use and currently ongoing marijuana inhalation. PLAN: 1. Will repeat imaging early next week after chest tube drainage. 2. Continue antibiotic. 3. Follow up with ABG, CBC and chest tube. 4. Educated on the impact of smoking marijuana on the lung and highly recommend patient to quit using inhaled marijuana. 5. Further recommendations pending hospital course. Thank you for the courtesy of this consult. Dictated by DEEPTI Del Rio for María Garcia MD cc: DEEPTI Del Rio MD [facility]
[2019-06-08] MEDS ORDERED: MAGNESIUM SULFATE 2 GM/S.W.I. 2 GM/50 ML IVPB IV ONE (16:00)
[2019-06-08] MEDS: KLOR-CON PO SCH ×2 (17:36→20:19)
--- NOTE | 2019-06-08 18:25 | GENERAL SURGERY PROGRESS NOTE ---
DATE: 06/08/2019 Ms. Marks says she is breathing better today. Her hemodynamics are good. She is afebrile. White [place] down [place] 8700. Chest x-ray shows improvement in her effusion. She has only drained about 500 mL of fluid. The fluid evaluation is fairly unremarkable. pH was alkaline. We will repeat her CT scan of the chest tomorrow to compare to the one prior to the chest tube placement. cc: Cachorro Carbajal MD
[2019-06-08] MEDS ORDERED: BENADRYL CREAM TOP PRN (18:44)
--- NOTE | 2019-06-08 19:39 | PROGRESS NOTE ---
DATE: 06/08/2019 INTERVAL HISTORY: No acute events overnight. She has been taking intravenous morphine. I discussed with her about stopping intravenous morphine starting tomorrow morning and just taking oral medications. SUBJECTIVE: She states she is breathing better. We had a discussion about her rash on the back. She denies any cough or expectoration. Her flank pain is better. OBJECTIVE: Vital signs: Temperature 98.8 degrees, pulse 56, respiratory rate 19, blood pressure 119/74, saturating 93% on room air. General: Does not appear in acute distress. Mouth: Oral cavity is moist. On back, she has papular rash which is diffuse, erythematous, itchy. She does have decreased air entry with inspiratory crackles on right infrascapular region as compared to left. Right chest tube site appears noninflamed. LABORATORY DATA: Labs suggestive of no leukocytosis, pretty much normocytic anemia with some microcytosis. Hypokalemia currently being repleted. I am also giving her magnesium, and we will recheck her potassium and magnesium levels tomorrow. MICROBIOLOGY: No positive data. ASSESSMENT AND PLAN: 1. Right-sided exudative pleural effusion with right lung multifocal pneumonia. She was a previous smoker for about 5 to [address] scan is awaited. Continue chest tube management as per General Surgery recommendation. Continue linezolid and Zosyn. Follow up final culture results. 2. Hypokalemia, likely because of Lasix use. I will replete potassium as well as magnesium, and we will follow up tomorrow. 3. Rash on the back. It looks like at [facility] [place] she was started on vancomycin as well as Zosyn. In fact, she had also received cefepime and metronidazole in the emergency room. One of these four medications could have brought about the rash. It is not bothering her. She does not have any shortness of breath or anaphylactic symptoms. I will treat it with topical Benadryl. Plan of care discussed with her. All questions answered. cc: Pawan Simon MD
[2019-06-09] MEDS: KLOR-CON PO SCH (00:08)
[2019-06-09] MEDS: MORPHINE IV PRN ×2 (00:08→04:10)
[2019-06-09] MEDS: KLONOPIN PO PRN ×4 (00:08→19:32)
[2019-06-09] MEDS: ZOSYN 3.375 GM in NS 50 ML IV SCH ×4 (02:58→21:15)
[2019-06-09] MEDS: ZYVOX 600 MG/D5W 600 MG/300 ML IVPB IV SCH ×2 (03:29→16:26)
--- NOTE | 2019-06-09 06:26 | Diag Imaging Result Doc PS360 ---
EXAM: CHEST-PORTABLE HISTORY: dyspnea TECHNIQUE: Chest single view COMPARISON: 06/08/2019 FINDINGS: No change in the right-sided chest tube. There is a small right-sided pleural effusion. No pneumothorax. Mild pulmonary edema. Atelectasis or infiltrates in the right base. IMPRESSION: No interval improvement. Electronically signed by Adebayo Lawrence 06/09/2019 6:24 AM
[2019-06-09] MEDS: LOVENOX SUBQ SCH (06:27)
[2019-06-09 07:31] LABS: BASO# 0.08 X1000 (0.0-0.2); BASO% 0.8 % (0.0-0.8); EOS% 4.9 % (0.0-10.0); HEMATOCRIT 43.2 % (37.0-47.0); HEMOGLOBIN 14.2 g/dL (12.0-16.0); IMM GRAN# 0.09 X1000 (0.0-0.04); IMM GRAN% 0.9 % (0.0-0.5); LYMPH# 1.78 X1000 (1.2-3.4); LYMPH% 17.5 % (20.5-51.1); MCH 32.8 PG (27-31); MCHC 32.9 g/dL (33-37); MCV 99.8 FL (81-99); MONO# 1.06 X1000 (0.11-0.59); MONO% 10.4 % (1.7-9.3); MPV 9.9 FL (7.4-10.4); NEUT# 6.67 X1000 (1.4-6.5); NEUT% 65.5 % (42.2-75.2); PLT 851 X1000 (130-400); RBC 4.33 XMIL (4.2-5.4); RDW 12.6 % (11.5-14.5); WBC 10.18 X1000 (4.8-10.8)
[2019-06-09 08:02] LABS: AGAP 10; BUN 1 mg/dL (8-22); CALCIUM 8.7 mg/dL (8.8-10.2); CHLORIDE 100 mmol/L (98-107); COSMO 272; CREATININE 0.7 mg/dL (0.5-0.9); ESTIMATED GFR > 60; GLUCOSE 82 mg/dL (70-104); POTASSIUM 4.3 mmol/L (3.5-5.1); SODIUM 139 mmol/L (136-145); TCO2 29 mmol/L (25-35)
[2019-06-09] MEDS: KENALOG 0.1% CREAM TOP SCH ×2 (09:18→21:15)
[2019-06-09] MEDS: NORCO-10 PO PRN ×3 (09:18→22:30)
[2019-06-09] MEDS: LASIX IV SCH (09:18)
--- NOTE | 2019-06-09 10:13 | Diag Imaging Result Doc PS360 ---
CT THORAX W/CONTRAST - 06/09/2019 INDICATION: right pleural effusion COMPARISON: 06/05/2019 FINDINGS: There is a right basilar chest tube in good position. There has been near-complete drainage of the pleural effusion, there is a trace residual pleural effusion. No adenopathy. There is stable cardiomegaly. No significant infiltrates. There are some scattered atelectasis in the lung bases, and possibly some trace pulmonary edema. Upper abdominal images are unremarkable. Bones are intact and well mineralized. IMPRESSION: 1. Right basilar chest tube in good position. Near-complete drainage of the right pleural effusion. 2. Cardiomegaly. 3. Trace residual pulmonary edema and atelectasis in the lung bases. Again, improved from prior. This exam was performed using automated exposure control, adjustment of mA or kV according to patient size, and/or use of iterative reconstruction technique Electronically signed by Jaden Mccrary 06/09/2019 10:11 AM
--- NOTE | 2019-06-09 13:59 | GENERAL SURGERY PROGRESS NOTE ---
DATE: 06/09/2019 Ms. Ruggiero is breathing satisfactorily. Her chest CT shows no residual fluid. She has had no significant fluid out her chest tube. I think she will be able to have her chest tube removed on Wednesday. Her lung is expanding better with resolution of the effusion. Dr. Reid will cover the weekend. cc: Cachorro Carbajal MD
--- NOTE | 2019-06-09 14:04 | PROGRESS NOTE ---
DATE: 06/09/2019 INTERVAL HISTORY: No acute events overnight. She got a chest CT which suggests improvement in pleural effusion and most of the pleural fluid has been drained out. According to the records, she has about 10 mL of urine output in the last 12 hours. The patient is feeling better. Denies any complaints. Her rash on the back is also better. I discussed with her it could be related to vancomycin or Zosyn. VITALS: Currently temperature 98.1 degrees, pulse 70, respiratory 21, blood pressure 122/91 saturating 97% room air. PHYSICAL EXAMINATION: General: Does not appear in acute distress. HEENT: Oral cavity is moist. Lungs: She has decreased air entry on the right infrascapular region. Adequate air entry on left hemithorax. Cardiovascular: S1, S2 normal no murmur or gallop. Abdomen: Soft, nontender. Active bowel sounds. Extremity: No lower extremity edema. Thorax: She has a right-sided chest tube connected to the drainage system. Neurologic: She is alert oriented x3. Skin: The erythematous papular rash on the back appears to be not progressing at the moment. LABS: Suggestive of normal hemoglobin, normal platelet count. She continues to have thrombocytosis. Hypokalemia has resolved. Microbiology no positive data. IMAGING: Chest CT suggests right basilar chest tube in good position, near- complete drainage of the right pleural effusion, cardiomegaly and trace residual pulmonary edema and atelectasis at lung bases which is improved from before. ASSESSMENT AND PLAN: 1. Right-sided exudative pleural effusion with right lung multifocal pneumonia with prior smoking history of half pack a day for 5 to 7 years. Continue chest tube management as per General Surgery recommendation. Continue linezolid and Zosyn. Cytology report is awaited. This could be parapneumonic effusion. I will appreciate Pulmonology recommendation if she would need further workup. 2. Hypokalemia because of Lasix use, now resolved. I will continue to monitor her potassium and I will decrease the Lasix dose to oral starting tomorrow. 3. Antibiotic induced rash on the back. She did not have any features of anaphylaxis. My guess is this could be related to use of vancomycin or Zosyn. For now she is tolerating Zosyn well and the rash is not progressing, so I will address it with topical Benadryl cream. 4. Continue enoxaparin for DVT prophylaxis. She does have history of cervical cancer for which she underwent hysterectomy in 02/2019. DISPOSITION: I will continue to monitor patient inside the hospital since she has chest tube. Plan of care discussed with her. All her questions have been answered. Once the chest tube is out, I will monitor her for recurrence of pleural effusion at which point I will talk about discharge. cc: Pawan Simon MD MTDD
[2019-06-09] MEDS: ZOFRAN IV PRN (16:34)
--- NOTE | 2019-06-09 20:14 | PULMONOLOGY PROGRESS NOTE ---
DATE: 06/09/2019 SUBJECTIVE: The patient is awake, alert, and conversant. She denies cough or sputum production. OBJECTIVE: Vital Signs: The patient has been afebrile for the last 24 hours. BP 122/91, heart rate 70, respiratory rate 21, oxygen saturation 97% on room air. HEENT: Pupils are equal and reactive. Oropharynx is clear. Neck: Supple. Chest: Reveals chest tube in position in the right hemithorax with decreased breath sounds right base. Cardiac exam: S1, S2. Abdomen: Soft. Extremities: Without edema. LABORATORIES: White blood count 10.18, hemoglobin 14.2, platelet count 851,000. CT scan of the thorax performed this morning reveals right basilar chest tube in excellent position with near complete drainage of the right pleural effusion. IMPRESSION: A 48-year-old with: 1. Community-acquired pneumonia. 2. Exudative parapneumonic effusion. 3. Status post chest tube drainage. 4. Hypoxemic respiratory failure, which is resolving. PLAN: 1. Continue bronchial hygiene. 2. Continue to mobilize patient as tolerated. 3. Anticipate discontinuation of chest tube tomorrow if her output remains low. cc: Bhupendra Kim MD
[2019-06-10] MEDS: ZOSYN 3.375 GM in NS 50 ML IV SCH ×4 (02:09→20:44)
[2019-06-10] MEDS: KLONOPIN PO PRN ×3 (02:22→22:15)
[2019-06-10] MEDS: ZYVOX 600 MG/D5W 600 MG/300 ML IVPB IV SCH ×2 (02:46→15:42)
[2019-06-10] MEDS: LOVENOX SUBQ SCH (05:25)
[2019-06-10] MEDS: NORCO-10 PO PRN ×3 (05:25→18:32)
[2019-06-10 06:54] LABS: AGAP 11; BUN 2 mg/dL (8-22); CHLORIDE 97 mmol/L (98-107); COSMO 279; CREATININE 0.8 mg/dL (0.5-0.9); ESTIMATED GFR > 60; GLUCOSE 95 mg/dL (70-104); SODIUM 142 mmol/L (136-145); TCO2 34 mmol/L (25-35)
[2019-06-10] MEDS: KENALOG 0.1% CREAM TOP SCH ×2 (10:57→20:42)
--- NOTE | 2019-06-10 11:39 | PROGRESS NOTE ---
DATE: 06/10/2019 SUBJECTIVE: Ms. Ruggiero had a right chest tube placed per Dr. Carbajal for right pleural effusion. The effusion has been drained. There has been no significant ongoing drainage from the right chest tube. There is no air leak and I pulled the right chest tube this morning. She tolerated it well. cc: Gabriela Reid MD
--- NOTE | 2019-06-10 13:57 | PROGRESS NOTE ---
DATE: 06/10/2019 INTERVAL HISTORY: No acute events overnight. Her chest tube was removed. Her pathology report is pending. She is complaining of some soreness in the chest, but her shortness of breath has improved. She is able to walk in the room without any difficulty. VITALS: Temperature 98.4 degrees, pulse 59, respiratory 18, blood pressure 137/76, saturating 98% room air. PHYSICAL EXAMINATION: General: Does not appear in acute distress. HEENT: Oral cavity is moist. Lungs: Air entry bilaterally equal. No wheeze, rhonchi, crackles. Cardiovascular: S1, S2 normal. No murmur, rub, or gallop. Abdomen: Soft, nontender. Her right-sided chest tube site is slightly tender, not a lot. Neurologic: She is alert and oriented x3. Skin: Her erythematous papular rash on the back appears to be getting better. LABS: Suggestive of hypokalemia with potassium of 3 which is currently being repleted, likely because of Lasix use. ASSESSMENT AND PLAN: 1. Right-sided exudative pleural effusion with right lung multifocal pneumonia with prior smoking history of half pack a day for about 5 to 7 years status post chest tube removed on June 10. Continue linezolid and Zosyn. Microbiology has been negative. This is most likely a parapneumonic effusion. Cytology report is pending, and she would have to see Pulmonology outpatient to discuss the final report. 2. Hypokalemia because of Lasix use, now resolved. I will replete potassium and Lasix has been stopped. 3. Antibiotic induced rash on the back, likely related to Zosyn or vancomycin. However, currently tolerating Zosyn well and rash is not progressing. Continue topical Benadryl. 4. Others. Continue enoxaparin for DVT prophylaxis. She does have history of cervical cancer for which she underwent hysterectomy in February 2019. DISPOSITION: I will repeat two-view chest x-ray tomorrow to make sure the pleural fluid is not reaccumulating. Based on that I will plan discharge tomorrow. Plan of care discussed with her. Her questions have been answered. cc: Pawan Simon MD
[2019-06-10] MEDS: KLOR-CON PO SCH ×2 (15:42→17:01)
--- NOTE | 2019-06-10 16:42 | PULMONOLOGY PROGRESS NOTE ---
DATE: 06/10/2019 SUBJECTIVE: The patient is awake and alert. Her chest tube has been removed. She reports she feels significantly better. OBJECTIVE: Vital Signs: The patient has been afebrile for the last 24 hours. Blood pressure 137/76, heart rate 59, respiratory rate 18, oxygen saturation 98%. HEENT: Pupils are equal and reactive. Oropharynx is clear. Neck: Supple. Chest: Reveals faint crackles at the right lung base. Cardiac: S1-S2. Abdomen: Soft without hepatosplenomegaly. Extremities: Without edema. LABORATORIES: No new microbiology data. No new white blood cell count today. Sodium 142, potassium 3.0, chloride 97, bicarbonate 34, BUN 2, creatinine 0.8. IMPRESSION: 48-year-old with 1. Community-acquired pneumonia. 2. Exudative parapneumonic effusion. 3. status post chest tube placement and removal. PLAN: 1. Continue bronchial hygiene. 2. Ambulate patient today. 3. Chest x-ray tomorrow with anticipation of discharge if she continues to improve. cc: Bhupendra Kim MD
[2019-06-10] MEDS ORDERED: LEVAQUIN PO SCH (21:00)
[2019-06-11] MEDS: ZOSYN 3.375 GM in NS 50 ML IV SCH ×2 (01:00→07:23)
[2019-06-11] MEDS: ZYVOX 600 MG/D5W 600 MG/300 ML IVPB IV SCH (02:11)
[2019-06-11] MEDS: NORCO-10 PO PRN (03:40)
[2019-06-11] MEDS: LOVENOX SUBQ SCH ×2 (04:57→05:03)
[2019-06-11] MEDS: KLONOPIN PO PRN (06:38)
[2019-06-11 07:43] VITALS: BP 137/82
--- NOTE | 2019-06-11 08:02 | Diag Imaging Result Doc PS360 ---
EXAM: CHEST-2 VIEWS INDICATION: Follow up reaccumulation of pleural fluid TECHNIQUE: 2 views COMPARISON: 07/19/2019 FINDINGS: During the interval, the right chest tube has been removed. The small loculated right pleural fluid collection at the right lung base is approximately stable given differences in technique. Right basilar atelectasis is approximately stable. Minimal interstitial edema has probably improved slightly. No new consolidation is identified. Cardiac silhouette is stable. IMPRESSION: Interval removal of the right chest tube and slight improvement in the mild interstitial edema. Stable chest, otherwise. Electronically signed by Aquilino Childress 06/11/2019 8:00 AM
--- NOTE | 2019-06-11 11:24 | DISCHARGE SUMMARY ---
ADMISSION DATE: 06/02/2019 DISCHARGE DATE: 06/11/2019 DISCHARGE DISPOSITION: Home. DISCHARGE CONDITION: Hemodynamically stable. The patient is not using any oxygen. She is able to walk in the hallway without any shortness of breath. She was advised to have a followup with brakes inspector and regular physician within a week's time. Discussed about final cytology report of pleural fluid. I also discussed about getting a repeat chest x-ray. DISCHARGE MEDICATIONS: Levofloxacin 750 mg daily for 5 more days. DISCHARGE DIAGNOSES: 1. Right-sided exudative pleural effusion. 2. Right lung multifocal pneumonia. 3. Hypokalemia due to Lasix use. 4. Antibiotic-induced rash on back due to either vancomycin or Zosyn. OTHER DIAGNOSES: 1. Prior history of smoking for about 5 to 7 years, about half a pack a day. 2. Recent history of cervical cancer, status post hysterectomy in 02/2019. PHYSICAL EXAMINATION: Vital Signs: At the time of discharge, temperature 98.3 degrees, pulse 63, respiratory rate 18, blood pressure 137/82, saturating 100% room air. General: Does not appear in acute distress. HEENT: Oral cavity is moist. Lungs: Air entry bilaterally equal. No wheeze or rhonchi. Mild crackles, right infrascapular region. Cardiovascular: S1, S2 normal. No murmur or gallop. Abdomen: Soft, nontender. Extremities: No lower extremity edema. Back: The rash on the back is improving. It was initially erythematous papular. Now, the erythema has significantly gone down. It is not spreading. SIGNIFICANT LABORATORY DATA AT HOSPITAL ADMISSION AND DISCHARGE: Her WBC was 15,000, which improved to 10,000, hemoglobin is 12.6, platelets are 851,000 at the time of discharge. She did have a potassium of 3, which she received 80 mEq of potassium. Her BUN is 2, creatinine of 0.87. SIGNIFICANT IMAGING DURING HOSPITAL ADMISSION AND DISCHARGE: Abdomen and pelvis CT on presentation had a small right pleural effusion. There was 2.6 x 2.3 mm pleural based nodular opacity with central fluid necrosis at the posterolateral inferior right lower lobe lung. This could be inflammatory or malignant. Nonspecific mild thickening of the gallbladder wall. No calcified gallstone. No pericholecystic inflammation. Small left renal cyst. No hydronephrosis. She underwent chest x-ray on presentation, which had trace right pleural effusion. Faint nodular opacity at lateral right lower lobe. There were no other abnormalities. Lungs were otherwise clear, and heart was normal. Chest CT on 06/05/2019 has cardiomegaly with moderate-sized right pleural effusion with basilar atelectasis and infiltrate. Echocardiogram had suggested left ventricular ejection fraction of 60%. Normal left ventricular cavity size, without any significant valvular pathology or intracardiac mass or thrombus. Chest tube was placed, and on chest CT on 06/09/2019, right basilar chest tube was in good position, and near complete drainage of the right pleural effusion, cardiomegaly, trace residual pulmonary edema and atelectasis in lung bases, again improved from prior. On 06/11/2019, repeat chest x-ray had interval removal of right chest tube, and slight improvement in the mild interstitial edema. Stable chest otherwise. CONSULTATIONS AND PROCEDURES DURING HOSPITALIZATION: Pulmonology, Dr. Garcia and Dr. Kim. General Surgery, Dr. Carbajal and Dr. Reid. The patient underwent right chest tube placement on 06/07/2019, which was removed on 06/10/2019. HOSPITAL COURSE SUMMARY: Ms. Ruggiero is a 48-year-old lady with history of recently diagnosed cervical cancer, who underwent hysterectomy in February, came in with chief complaints of right-sided lower chest, upper abdominal pain with sweating and chills, without any dysuria, urinary frequency, urgency, or hesitancy. Because of the concerns for pyelonephritis, she underwent CT scan of the abdomen and pelvis, which did not detect any pyelonephritis. In fact, it did detect the right-sided pleural effusion with some suspicion of multifocal pneumonia, so she was admitted and was started on intravenous antibiotics. On repeating the chest x-ray a few days later, it was suggestive of increasing size of the pleural effusion, so she was advised to go to the [facility] for Surgical and Pulmonology evaluation. She underwent chest tube placement and drainage of the pleural fluid. The pleural fluid analysis was exudative in nature with 1199 WBCs, 76% polymorphonuclear, LDH of 991, and total protein of 4. With chest tube, the pleural fluid got drained, and her leukocytosis improved from 15,000 to 8000. Later on, antibiotics were changed to oral antibiotics, and she was discharged home. It was thought that her pleural effusion was most likely parapneumonic effusion because of right- sided multifocal pneumonia. She was advised to have a followup with brakes inspector to discuss about the final cytology report, which was pending. She was also advised to complete the course of oral antibiotics. At the time of discharge, she was not in respiratory distress. TIME SPENT: More than 30 minutes were spent discharging the patient. All of her questions were answered. cc: Pawan Simon MD
== END 2019-06-11 11:24 | disposition home or self-care (01) | DRG 194 ==
LOC: P.ED 06:05 → SUATTDRO 09:35 → P.MEDSURG 09:35 → 3N 06-07 13:32
PROVIDERS: ATTEND Internal Medicine